=== PATIENT | female | born 1945 | race Caucasian/White ===

== ENCOUNTER 2018-12-19 12:38 | Emergency (ER) | payer MEDICARE, OTHER ==
--- NOTE | 2018-12-19 12:56 | ER Document Report ---
HPI - HPI Time Seen by Provider: 12/19/18 12:48 Context: Patient is a 73-year-old female who presents to the emergency department with a chief complaint of right thumb injury. Patient reports around 11 AM she was attempting to shut the dryer door when it smashed her right thumb. Patient repo rts she does have a laceration to the bottom of the right thumb. Patient reports she does have an oozing of blood, she is on Xarelto for a blood clot in the neck. Patient reports her tetanus shot is up-to-date. Patient reports there is no nail bed involvement. Patient reports she was seen at the urgent care and sent here for imaging. Past Medical History - General Information source: Patient - Social History Smoking Status: Former Smoker Lives with: Family Family History: None Vertical Provider Document - CONSTITUTIONAL Agree With Documented VS: Yes Exam Limitations: No Limitations General Appearance: No Apparent Distress - HEENT HEENT: Atraumatic, Normocephalic, PERRLA - RESPIRATORY Respiratory: Breath Sounds Normal, No Respiratory Distress - CARDIOVASCULAR Cardiovascular: Regular Rate, Regular Rhythm - GI/ABDOMEN Gastrointestinal: Abdomen Soft, Abdomen Non-Tender - NEURO Level of Consciousness: Awake, Alert, Appropriate - DERM Integumentary: Warm, Dry, Laceration Notes: U shaped superficial laceration/skin tear noted to the ventral aspect of the right thumb. This is located at the distal aspect of the thumb. There is no nailbed involvement. Patient does have good range of motion of the right thumb. Bleeding is controlled. Patient has good flexion extension of the thumb. <2 sec cap refill to the thumb. No obvious deformity. Course - Re-evaluation Re-evalutation: 12/19/18 12:56 We will cleanse the wound and soaked in Shur-Clens and warm water. Will obtain an x-ray to rule out bony abnormality. 12/19/18 15:01 The wound was copiously irrigated prior to suture repair. I did bring the wound loosely approximated with 3 sutures. I was unable to bring the wound closer together due to the thin skin. I did use Steri-Strips over the laceration. Patient was placed in a finger splint. We will send patient to hand surgeon. I do not suspect a tendon injury as the patient does have good flexion and extension. X-ray did not show a fracture/dislocation. - Diagnostic Test Radiology reviewed: Reports reviewed Radiology results interpreted by me: 12/19/18 14:59 Finger X-Ray 12/19/18 12:52 IMPRESSION: No fracture evident. As above. Procedures - Laceration/Wound Repair Right Distal Thumb Time completed: 14:45 Wound length (cm): 3 Wound's Depth, Shape: Superficial, Irregular, Flap Laceration pre-procedure: Sterile PPE donned, Sterile drapes applied, Shur-Clens applied Anesthetic type: 1% Lidocaine Volume Anesthetic (mLs): 1 Wound explored: Clean Irrigated w/ Saline (mLs): 250 Wound Repaired With: Sutures Suture Size/Type: 5:0, Nylon Number of Sutures: 3 Post-procedure wound care: Sterile dressing applied, Splint applied Post-procedure NV exam normal: Yes Complications: No Hands front picture: 1 - 3 cm u-shaped irregular laceration/skin flap brought together with three loose sutures, then applied steri strips. Discharge - Discharge Clinical Impression: Laceration of right thumb Qualifiers: Encounter type: initial encounter Damage to nail status: without damage Foreign body presence: without foreign body Qualified Code(s): S61.011A - Laceration without foreign body of right thumb without damage to nail, initial encounter Condition: Stable Disposition: HOME, SELF-CARE Additional Instructions: Today you are seen in the emergency department for laceration to the right thumb. The x-ray did not show any acute fracture dislocation. Your physical examination was reassuring. The wound was copiously irrigated with soap and water. The skin flap was brought together with 3 loose sutures. I did this primarily to bring the wound together although the skin was very thin. This d oes have the potential to break through due to the thin skin. I placed you in a finger splint to help prevent this. Your wound was also closed with Steri- Strips. Please keep these intact until they follow-up on their own. Please follow-up with the hand surgeon for reevaluation. If you are unable to get an appointment with him please return to the emergency department to have the sutures removed in 10 days. Please remove the finger splint daily to visualize the finger. Watch for increased swelling, redness, drainage, increased tenderness, red streaking, drainage or numbness or tingling. If you do have any of these symptoms please return to the emergency department. LACERATION CARE: Your laceration has been sutured to keep the skin edges aligned during healing. The time of suture removal depends on the nature and location of your cut. Please follow the care instructions the doctor has outlined for you and return for further care, according to the schedule you've been given. Keep the wound and dressing clean. Unless you were told otherwise, you may shower daily, blotting the wound dry with a clean, unused towel. At other times, If the dressing gets wet or blood soaked, remove it and blot the wound dry, then reapply a new dressing. Unless you were instructed otherwise, dressings should be changed at least daily. If any signs of infection occur (swelling, redness, drainage, increasing tenderness, red streaks, tender lumps in the armpit or groin above the laceration, or fever), see the doctor immediately. SOAP CLEANSING: Gently wash the wound daily using a mild soap (like Ivory, Phisoderm, Neutrogena). Use warm water, rubbing gently until all debris, ooze, and crusting have been washed from the wound. Allow to dry briefly (about 10 minutes) after cleaning. Repeat this cleansing at least three times a day for the first two days and then once or twice a day. FOLLOW-UP CARE: Your sutures should be removed in __10__ days. To facilitate a timely removal of your sutures, you may return to the Emergency Department at [facility]. You do not need to call for an appointment, but the best time to come in for suture removal is early in the morning. If you have been referred to another physician for follow-up care, call that physicians office for an appointment as you were instructed. If you exp erience a significant change in your laceration, or if you are concerned there may be an infection (swelling, redness, drainage, increasing tenderness, red streaks, tender lumps in the armpit or groin above the laceration, or fever), return to the Emergency Department immediately re-evaluation. Referrals: BESSY AZUL, [ACTIVE STAFF] - Follow up as needed
--- NOTE | 2018-12-19 13:22 | RADIOLOGY REPORT (SQ) ---
EXAM DESCRIPTION: FINGER RIGHT COMPLETED DATE/TIME: 12/19/2018 1:13 pm REASON FOR STUDY: Slammed right thumb in door COMPARISON: None. NUMBER OF VIEWS: Three views right hand and thumb. LIMITATIONS: None. FINDINGS: Osteopenic. Slightly hyper extended appearing thumb at the MP joint. No subluxation or d islocation or fracture. Pronounced thumb base degenerative disease. OTHER: No other significant finding. IMPRESSION: No fracture evident. As above. TECHNICAL DOCUMENTATION: JOB ID: [id number] Reading location - IP/workstation name: [email or web address]
[2018-12-19] MEDS ORDERED: LIDOCAINE 1% INJ-PF (10 MG/ML) 30 ML SDV INJ ONE (14:01)
[2018-12-19] MEDS ORDERED: ACETAMINOPHEN 325 MG TABLET PO ONE (14:59)
[2018-12-19 15:26] VITALS: BP 124/51
== END 2018-12-19 15:28 | disposition home or self-care (01) ==
LOC: ER 12:38
DX: S61.011A Laceration without foreign body of right thumb without damage to nail, initial encounter (principal); W23.1XXA Caught, crushed, jammed, or pinched between stationary objects, initial encounter; Z79.01 Long term (current) use of anticoagulants
CPT/HCPCS: 73140; 12002; A9270; J3490; 99283

== ENCOUNTER → 2019-03-16 | Outpatient (CLI) | payer MEDICARE, OTHER ==
[2019-03-16 09:09] LABS: HEMATOCRIT 42.7 % (36.0-47.0); HEMOGLOBIN 14.5 g/dL (12.0-15.5); MEAN CORPUSCULAR HEMOGLOBIN 29.1 pg (27.0-33.4); MEAN CORPUSCULAR HGB CONC 33.8 g/dL (32.0-36.0); MEAN CORPUSCULAR VOLUME 86 fl (80-97); PLATELET COUNT 228 10^3/uL (150-450); RED BLOOD COUNT 4.97 10^6/uL (3.72-5.28); RED CELL DISTRIBUTION WIDTH 14.5 % (11.5-14.0); WHITE BLOOD COUNT 5.7 10^3/uL (4.0-10.5)
[2019-03-16 09:31] LABS: ALBUMIN 4.1 g/dL (3.5-5.0); ALKALINE PHOSPHATASE 85 U/L (38-126); ANION GAP 6 (5-19); ASPARTATE AMINO TRANSFERASE 25 U/L (14-36); BILIRUBIN,TOTAL 0.6 mg/dL (0.2-1.3); BLOOD UREA NITROGEN 22 mg/dL (7-20); CALCIUM 9.8 mg/dL (8.4-10.2); CARBON DIOXIDE 27 mmol/L (22-30); CHLORIDE 107 mmol/L (98-107); CHOLESTEROL 244.32 mg/dL (0-200); GLUCOSE 94 mg/dL (75-110); POTASSIUM 5.1 mmol/L (3.6-5.0); TOTAL PROTEIN 7.1 g/dL (6.3-8.2); TRIGLYCERIDES 86 mg/dL (<150)
[2019-03-16 09:33] LABS: APPEARANCE,URINE CLOUDY; BILIRUBIN,URINE NEGATIVE (NEGATIVE); COLOR,URINE YELLOW; GLUCOSE, URINE NEGATIVE (NEGATIVE); KETONES,URINE NEGATIVE (NEGATIVE); LEUKOCYTE ESTERASE,URINE MODERATE (NEGATIVE); NITRITE,URINE POSITIVE (NEGATIVE); PROTEIN,URINE 30 mg/dL (NEGATIVE); URINE SPECIFIC GRAVITY 1.013; UROBILINOGEN,URINE NEGATIVE mg/dL (<2.0)
[2019-03-16 09:42] LABS: DIRECT LDL 166 mg/dL (<100)
== END ==
LOC: OD 08:04
PROVIDERS: ATTEND Internal Medicine Cardiovascular Disease
DX: E78.00 Pure hypercholesterolemia, unspecified (principal); R00.0 Tachycardia, unspecified; Z79.01 Long term (current) use of anticoagulants; Z79.899 Other long term (current) drug therapy; R01.1 Cardiac murmur, unspecified; Z86.718 Personal history of other venous thrombosis and embolism
CPT/HCPCS: 36415; 80048; 80061; 80076; 81001; 82272; 83735; 84443; 85027; 85730

== ENCOUNTER → 2019-04-21 | Outpatient (CLI) | payer MEDICARE, OTHER ==
[2019-04-21 08:16] LABS: ALBUMIN 3.9 g/dL (3.5-5.0); ALKALINE PHOSPHATASE 88 U/L (38-126); ANION GAP 10 (5-19); ASPARTATE AMINO TRANSFERASE 24 U/L (14-36); BILIRUBIN,DIRECT 0.3 mg/dL (0.0-0.4); BILIRUBIN,TOTAL 0.6 mg/dL (0.2-1.3); BLOOD UREA NITROGEN 18 mg/dL (7-20); CALCIUM 9.3 mg/dL (8.4-10.2); CARBON DIOXIDE 26 mmol/L (22-30); CHLORIDE 104 mmol/L (98-107); CHOLESTEROL 130.64 mg/dL (0-200); GLUCOSE 96 mg/dL (75-110); POTASSIUM 4.4 mmol/L (3.6-5.0); TOTAL PROTEIN 7.1 g/dL (6.3-8.2); TRIGLYCERIDES 87 mg/dL (<150)
[2019-04-21 08:27] LABS: DIRECT LDL 78 mg/dL (<100)
== END ==
LOC: LAB 07:37
PROVIDERS: ATTEND Internal Medicine Cardiovascular Disease
DX: E78.00 Pure hypercholesterolemia, unspecified (principal); E87.5 Hyperkalemia; Z79.899 Other long term (current) drug therapy
CPT/HCPCS: 36415; 80048; 80061; 80076

== ENCOUNTER → 2019-06-01 | Outpatient (CLI) | payer MEDICARE, OTHER ==
--- NOTE | 2019-06-01 16:11 | RADIOLOGY REPORT (SQ) ---
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 RADIONUCLIDE AND DOSE: 9.91 mCi F18 FDG The route of agent administration: Intravenous FASTING BLOOD SUGAR: 91 mg/dl CONTRAST TYPE AND DOSE: No CT contrast given. TECHNIQUE: Blood glucose level was verified. Above dose of FDG was injected intravenously. 2-D seg mented attenuation correction images were obtained from the base of the skull to the midthighs. Nonc ontrast CT images were obtained for attenuation correction and fusion with emission images. CT image s were performed without oral or intravenous contrast and are not sensitive for parenchymal lesions. A series of overlapping emission PET images were obtained. Images reviewed and manipulated at [facility] work station by the radiologist. Images stored on PACS. LIMITATIONS: None. FINDINGS: HEAD AND NECK: No areas of abnormal metabolic activity in the soft tissues of the head and neck. CHEST: No areas of abnormal metabolic activity in the chest. ABDOMEN AND PELVIS: 2 focal areas of increased metabolic activity in the pelvis. There is a 1.1 cm n ode along the right lateral pelvic sidewall just posterior to the acetabulum. SUV is measured at 4.2 . Neoplasm cannot be excluded. There is a small node demonstrated on CT series 3, image 206. This demonstrates an SUV of 2.5. This could be reactive. This node measures 7.4 mm in diameter. PROXIMAL LOWER EXTREMITIES: No areas of abnormal metabolic activity in the soft tissues of the lower extremities. BONES: No abnormal metabolic activity in the visualized skeleton. ADDITIONAL CT FINDINGS: Postsurgical changes. Prior cystectomy with urinary diversion. Mild left ad renal fullness but no abnormal metabolic activity. OTHER: No other significant findings. IMPRESSION: 2 small lymph nodes in the right aspect of the pelvis is described. 1 demonstrates an S UV of 4.2. It measures 1.1 cm in diameter. Metastatic disease cannot be excluded. TECHNICAL DOCUMENTATION: JOB ID: [id number] [employer]- All Rights Reserved Reading location - IP/workstation name: [email or web address]
== END ==
LOC: RAD 07:59
PROVIDERS: ATTEND Internal Medicine
DX: C67.0 Malignant neoplasm of trigone of bladder (principal)
CPT/HCPCS: 78815; A9552

== ENCOUNTER 2019-06-11 08:44 | Day surgery (SDC) | payer MEDICARE, OTHER ==
[2019-06-11 09:20] LABS: HEMATOCRIT 41.2 % (36.0-47.0); HEMOGLOBIN 14.6 g/dL (12.0-15.5); MEAN CORPUSCULAR HEMOGLOBIN 29.5 pg (27.0-33.4); MEAN CORPUSCULAR HGB CONC 35.5 g/dL (32.0-36.0); MEAN CORPUSCULAR VOLUME 83 fl (80-97); PLATELET COUNT 218 10^3/uL (150-450); RED BLOOD COUNT 4.95 10^6/uL (3.72-5.28); RED CELL DISTRIBUTION WIDTH 16.4 % (11.5-14.0); WHITE BLOOD COUNT 6.2 10^3/uL (4.0-10.5)
[2019-06-11 09:43] LABS: BLOOD UREA NITROGEN 18 mg/dL (7-20)
[2019-06-11 09:49] LABS: INTERNATIONAL RATION (INR) 0.93; PROTHROMBIN TIME 12.5 SEC (11.4-15.4)
[2019-06-11 09:50] LABS: PARTIAL THROMBOPLASTIN TIME 30.9 SEC (23.5-35.8)
--- NOTE | 2019-06-11 12:43 | RADIOLOGY REPORT (SQ) ---
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 TECHNIQUE: CT guided biopsy of the right pelvic side wall soft tissue nodule performed with consciou s sedation. CT Fluoroscopy Time: 21.[address] scanners at this facility use dose modulation, iterative reconstruction, and/or weight based d osing when appropriate to reduce radiation dose to as low as reasonably achievable (ALARA). [facility]: Dose Right [facility]: CareDose [facility]: Dose Right [facility]: Teradose 4D [facility]: [employer] RADIATION DOSE: mGy. FINDINGS: After obtaining informed consent and explaining the risks and benefits of conscious sedati on,the patient agreed to the procedure. Prior to the procedure, a time out was performed to verify th e patient's identity and planned procedure. IV sedation was administered and physician direction by the registered nurse using 1 milligrams of Ve rsed and 50 micrograms of fentanyl, for conscious sedation. Physiologic monitoring was provided befor e, during, and after sedation. The total sedation time was 30 minutes. Documentation face to face time, the performing proceduralist, spent monitoring the patient: 3rd min utes. Noncontrast CT scanning was performed to localize the percutaneous site for the biopsy approach. After sterile skin prep and local lidocaine for skin and deep tissue anesthesia, a coaxial biopsy nee dle was advanced toward the subcentimeter soft tissue nodule along the right pelvic side wall. After needle position confirmed multiple core biopsies were obtained. The samples were placed in appropri ate solution and sent to the lab for analysis. The right pelvic soft tissue subcentimeter used to ob tain multiple cores of tissue. The biopsy tissue was submitted to the lab in formalin. There were no immediate complications. Pathology is pending at the time of dictation. IMPRESSION: CT fluoroscopy guided biopsy of the subcentimeter soft tissue right pelvic sidewall nodu le as detailed above. Technically difficult biopsy secondary to small lesion size. COMMENT: Quality ID 145: Final reports for procedures using fluoroscopy that document radiation exp osure indices, or exposure time and number of fluorographic images (if radiation exposure indices are not available) Patient medication list reviewed: Yes- Quality ID# [id number]:Eligible professional attests to documenting i n the medical record they obtained, updated, or reviewed the patient's current medications.. TECHNICAL DOCUMENTATION: JOB ID: [id number] Quality ID# [id number]: Final reports with documentation of one or more dose reduction techniques (e.g., Aut omated exposure control, adjustment of the mA and/or kV according to patient size, use of iterative r econstruction technique) 2010 [employer]- All Rights Reserved Reading location - IP/workstation name: [email or web address]
--- NOTE | 2019-06-11 12:43 | RADIOLOGY REPORT (SQ) ---
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 TECHNIQUE: CT guided biopsy of the right pelvic side wall soft tissue nodule performed with consciou s sedation. CT Fluoroscopy Time: 21.[address] scanners at this facility use dose modulation, iterative reconstruction, and/or weight based d osing when appropriate to reduce radiation dose to as low as reasonably achievable (ALARA). [facility]: Dose Right [facility]: CareDose [facility]: Dose Right [facility]: Teradose 4D [facility]: [employer] RADIATION DOSE: mGy. FINDINGS: After obtaining informed consent and explaining the risks and benefits of conscious sedati on,the patient agreed to the procedure. Prior to the procedure, a time out was performed to verify th e patient's identity and planned procedure. IV sedation was administered and physician direction by the registered nurse using 1 milligrams of Ve rsed and 50 micrograms of fentanyl, for conscious sedation. Physiologic monitoring was provided befor e, during, and after sedation. The total sedation time was 30 minutes. Documentation face to face time, the performing proceduralist, spent monitoring the patient: 3rd min utes. Noncontrast CT scanning was performed to localize the percutaneous site for the biopsy approach. After sterile skin prep and local lidocaine for skin and deep tissue anesthesia, a coaxial biopsy nee dle was advanced toward the subcentimeter soft tissue nodule along the right pelvic side wall. After needle position confirmed multiple core biopsies were obtained. The samples were placed in appropri ate solution and sent to the lab for analysis. The right pelvic soft tissue subcentimeter used to ob tain multiple cores of tissue. The biopsy tissue was submitted to the lab in formalin. There were no immediate complications. Pathology is pending at the time of dictation. IMPRESSION: CT fluoroscopy guided biopsy of the subcentimeter soft tissue right pelvic sidewall nodu le as detailed above. Technically difficult biopsy secondary to small lesion size. COMMENT: Quality ID 145: Final reports for procedures using fluoroscopy that document radiation exp osure indices, or exposure time and number of fluorographic images (if radiation exposure indices are not available) Patient medication list reviewed: Yes- Quality ID# [id number]:Eligible professional attests to documenting i n the medical record they obtained, updated, or reviewed the patient's current medications.. TECHNICAL DOCUMENTATION: JOB ID: [id number] Quality ID# [id number]: Final reports with documentation of one or more dose reduction techniques (e.g., Aut omated exposure control, adjustment of the mA and/or kV according to patient size, use of iterative r econstruction technique) 2010 [employer]- All Rights Reserved Reading location - IP/workstation name: [email or web address]
[2019-06-11 17:14] VITALS: BP 114/69
== END 2019-06-11 15:10 | disposition home or self-care (01) ==
LOC: RAD 08:44
PROVIDERS: ATTEND Internal Medicine
DX: C67.0 Malignant neoplasm of trigone of bladder (principal); Z79.01 Long term (current) use of anticoagulants; J44.9 Chronic obstructive pulmonary disease, unspecified; K21.9 Gastro-esophageal reflux disease without esophagitis; I82.90 Acute embolism and thrombosis of unspecified vein
CPT/HCPCS: 36415; 84520; 82565; 85027; 85610; 85730; 88342 ×2; 88341 ×2; 88305 ×2; 77012; 27040; J2250; J3010

== ENCOUNTER 2019-07-15 12:23 | Emergency (ER) | payer MEDICARE, OTHER ==
--- NOTE | 2019-07-15 13:04 | ER Document Report ---
ED Medical Screen (RME) - General Chief Complaint: Eye Problem Stated Complaint: EYE IRRITATION Time Seen by Provider: 07/15/19 12:55 Primary Care Provider: SIMEON NUNEZ MD [Primary Care Provider] - Follow up as needed Mode of Arrival: Ambulatory Information source: Patient TRAVEL OUTSIDE OF THE [place] IN LAST 30 DAYS: No - HPI Notes: 07/15/19 12:59 74-year-old female presents to the emergency room with a history of a brain blood clot and she is on Eliquis today with complaints of right eye pain, blurred vision after she states dust from car battery acid went into her eye approximately an hour ago. Patient does not wear contacts. States she immediately irrigated her eye thereafter. Reports pain is 4 out of 5. P atient's tetanus is up-to-date. Patient states she did not take any [id number] medications for her eye pain I have greeted and performed a rapid initial assessment of this patient. A comprehensive ED assessment and evaluation of the patient, analysis of test results and completion of the medical decision making process will be conducted by additional ED providers. PHYSICAL EXAMINATION: GENERAL: Well-appearing, well-nourished and in no acute distress. HEAD: Atraumatic, normocephalic. EYES: Pupils equal round extraocular movements intact, conjunctiva are normal. R eye with erythema at 10 o'clock in iris with gel like substance near lower conjunctiva. Noted right sclera with erythema NECK: Normal range of motion CV: s1, s2 regular LUNGS: No respiratory distress NEUROLOGICAL: Normal speech, normal gait. 07/15/19 13:01 - Related Data Allergies/Adverse Reactions: adhesive Allergy (Mild, Verified 07/15/19 13:00) Past Medical History - Past Medical History Cardiac Medical History: Denies: Hx Coronary Artery Disease, Hx Heart Attack, Hx Hypertension Pulmonary Medical History: Reports: Hx COPD Denies: Hx Asthma, Hx Bronchitis, Hx Pneumonia Neurological Medical History: Denies: Hx Cerebrovascular Accident, Hx Seizures Musculoskeltal Medical History: Reports Hx Arthritis - thumb Past Surgical History: Reports: Hx Orthopedic Surgery - left wrist - Immunizations Hx Diphtheria, Pertussis, Tetanus Vaccination: Yes Physical Exam - Vital signs Vitals: Temp Pulse Resp BP Pulse Ox 98.1 F 95 16 149/61 H 94 07/15/19 12:32 07/15/19 12:32 07/15/19 12:32 07/15/19 12:32 07/15/19 12:32 Course - Vital Signs Vital signs: Temp Pulse Resp BP Pulse Ox 98.1 F 95 16 149/61 H 94 07/15/19 12:32 07/15/19 12:32 07/15/19 12:32 07/15/19 12:32 07/15/19 12:32 Doctor's Discharge - Discharge Referrals: SIMEON NUNEZ MD [Primary Care Provider] - Follow up as needed
--- NOTE | 2019-07-15 19:34 | ER Document Report ---
ED General - General Chief Complaint: Eye Injury Stated Complaint: EYE IRRITATION Time Seen by Provider: 07/15/19 12:55 Primary Care Provider: DOTTIE LARA DO [ACTIVE STAFF] - Follow up as needed SIMEON NUNEZ MD [Primary Care Provider] - Follow up as needed Mode of Arrival: Ambulatory Information source: Patient TRAVEL OUTSIDE OF THE [place] IN LAST 30 DAYS: No - HPI Onset: Just prior to arrival Onset/Duration: Sudden Quality of pain: Burning Severity: Mild Pain Level: 1 Associated symptoms: Other - redness of right eye Exacerbated by: Denies Relieved by: Denies Similar symptoms previously: No Recently seen / treated by doctor: No Notes: 74 year old female with no significant PMH here in the ER for right eye redness, pain, and mild discharge after getting some dust from a car battery in her eye. The patient says she initially felt like something was in her right eye but she irrigated her eye and she thinks she got whatever that was out. The patient says her right eye just looks very red now and a family member thought they saw a cut/abrasion of her right eye. - Related Data Allergies/Adverse Reactions: adhesive Allergy (Mild, Verified 07/15/19 13:00) Past Medical History - General Information source: Patient - Social History Smoking Status: Never Smoker Chew tobacco use (# tins/day): No Frequency of alcohol use: Occasional Drug Abuse: None Family History: None Patient has homicidal ideation: No - Past Medical History Cardiac Medical History: Denies: Hx Coronary Artery Disease, Hx Heart Attack, Hx Hypertension Pulmonary Medical History: Reports: Hx COPD Denies: Hx Asthma, Hx Bronchitis, Hx Pneumonia Neurological Medical History: Denies: Hx Cerebrovascular Accident, Hx Seizures Musculoskeletal Medical History: Reports Hx Arthritis - thumb Past Surgical History: Reports: Hx Orthopedic Surgery - left wrist - Immunizations Hx Diphtheria, Pertussis, Tetanus Vaccination: Yes Hx Pneumococcal Vaccination: 12/06/18 Review of Systems - Review of Systems Constitutional: No symptoms reported EENT: Eye pain - right eye, Eye discharge - right eye, Other - Redness of right eye Cardiovascular: No symptoms reported Respiratory: No symptoms reported Gastrointestinal: No symptoms reported Genitourinary: No symptoms reported Female Genitourinary: No symptoms reported Musculoskeletal: No symptoms reported Skin: No symptoms reported Hematologic/Lymphatic: No symptoms reported Neurological/Psychological: No symptoms reported -: Yes All other systems reviewed and negative Physical Exam - Vital signs Vitals: Temp Pulse Resp BP Pulse Ox 98.1 F 95 16 149/61 H 94 07/15/19 12:32 07/15/19 12:32 07/15/19 12:32 07/15/19 12:32 07/15/19 12:32 - Notes Notes: GENERAL: Well-appearing, well-nourished and in no acute distress. HEAD: Atraumatic, normocephalic. EYES: Right conjunctiva is injected. Mild purulent drainage from right eye. Pupils equal round and reactive to light, extraocular movements intact, sclera anicteric, conjunctiva are normal. Rolon lamp and fluorescein exam reveals 2 corneal abrasions of right eye at 5 and 7 oclock. ENT: External ears normal, nares patent, oropharynx clear without exudates. Moist mucous membranes. NECK: Normal range of motion, supple without lymphadenopathy or JVD. LUNGS: Breath sounds clear to auscultation bilaterally and equal. No wheezes rales or rhonchi. HEART: Regular rate and rhythm without murmurs, rubs or gallops. ABDOMEN: Soft, nontender, normoactive bowel sounds. No guarding, no rebound. No masses appreciated. EXTREMITIES: Normal range of motion, no pitting or edema. No clubbing or cyanosis. NEUROLOGICAL: Cranial nerves II through XII grossly intact. Normal speech, normal gait. PSYCH: Normal mood, normal affect. SKIN: Warm, Dry, normal turgor, no rashes or lesions noted. - HEENT Visual acuity- Right eye: 20/20 Visual acuity- Left eye: 20/20 Visual acuity- Both eyes: 20/20 Corrective lenses worn: Yes Course - Re-evaluation Re-evalutation: 07/15/19 19:40 The patient got dust from a car battery in her right eye. She rinsed her eye out some herself prior to ER arrival. I used tetracaine drops and rinsed the patient's eye out more. On further exam with Rolon Lamp, patient found to have 2 corneal abrasions but no foreign bodies. Patient DCed with script for Erythromycin and she was told to follow up with an Eye Doctor. - Vital Signs Vital signs: Temp Pulse Resp BP Pulse Ox 98.0 F 79 17 135/61 H 97 07/15/19 16:59 07/15/19 16:59 07/15/19 16:59 07/15/19 16:59 07/15/19 16:59 Discharge - Discharge Clinical Impression: Corneal abrasion Qualifiers: Encounter type: initial encounter Laterality: right Qualified Code(s): S05.01XA - Injury of conjunctiva and corneal abrasion without foreign body, right eye, initial encounter Condition: Stable Disposition: HOME, SELF-CARE Instructions: Corneal Abrasion ([facility]) Additional Instructions: Use the antibiotic ointment (erythromycin) as prescribed four times a day. Follow up with an Eye Doctor such as Dr. Lara in 5-7 days to ensure resolution of symptoms. Prescriptions: Erythromycin Base [Erythromycin Oph 1 Gm Oint Ud] 1 applic OD QID 7 Days #1 tube Referrals: SIMEON NUNEZ MD [Primary Care Provider] - Follow up as needed DOTTIE LARA DO [ACTIVE STAFF] - Follow up as needed
[2019-07-15 20:06] VITALS: BP 129/67
== END 2019-07-15 20:15 | disposition home or self-care (01) ==
LOC: ER 12:23
DX: S05.01XA Injury of conjunctiva and corneal abrasion without foreign body, right eye, initial encounter (principal); X58.XXXA Exposure to other specified factors, initial encounter
CPT/HCPCS: 99283

== ENCOUNTER → 2019-10-12 | Outpatient (CLI) | payer MEDICARE, OTHER ==
[2019-10-12 09:58] LABS: ALBUMIN 3.7 g/dL (3.5-5.0); ALKALINE PHOSPHATASE 68 U/L (38-126); ANION GAP 7 (5-19); ASPARTATE AMINO TRANSFERASE 24 U/L (14-36); BILIRUBIN,DIRECT 0.3 mg/dL (0.0-0.4); BILIRUBIN,TOTAL 0.7 mg/dL (0.2-1.3); BLOOD UREA NITROGEN 20 mg/dL (7-20); CALCIUM 8.9 mg/dL (8.4-10.2); CARBON DIOXIDE 25 mmol/L (22-30); CHLORIDE 107 mmol/L (98-107); GLUCOSE 95 mg/dL (75-110); POTASSIUM 3.9 mmol/L (3.6-5.0); TOTAL PROTEIN 6.2 g/dL (6.3-8.2)
[2019-10-12 10:24] LABS: HEMATOCRIT 28.3 % (36.0-47.0); HEMOGLOBIN 9.9 g/dL (12.0-15.5); MEAN CORPUSCULAR HEMOGLOBIN 32.7 pg (27.0-33.4); MEAN CORPUSCULAR HGB CONC 35.1 g/dL (32.0-36.0); MEAN CORPUSCULAR VOLUME 93 fl (80-97); PLATELET COUNT 160 10^3/uL (150-450); RED BLOOD COUNT 3.04 10^6/uL (3.72-5.28); RED CELL DISTRIBUTION WIDTH 21.6 % (11.5-14.0); WHITE BLOOD COUNT 3.9 10^3/uL (4.0-10.5)
[2019-10-13 08:28] LABS: CHOLESTEROL 118.35 mg/dL (0-200); TRIGLYCERIDES 67 mg/dL (<150)
[2019-10-13 08:39] LABS: DIRECT LDL 55 mg/dL (<100)
== END ==
LOC: OD 08:23
PROVIDERS: ATTEND Internal Medicine Cardiovascular Disease
DX: E78.00 Pure hypercholesterolemia, unspecified (principal); R00.0 Tachycardia, unspecified; Z79.01 Long term (current) use of anticoagulants; Z79.899 Other long term (current) drug therapy
CPT/HCPCS: 36415; 80048; 80061; 80076; 82272; 85027; 85730

== ENCOUNTER → 2019-12-07 | Outpatient (CLI) | payer MEDICARE, OTHER ==
--- NOTE | 2019-12-08 10:24 | RADIOLOGY REPORT (SQ) ---
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 RADIONUCLIDE AND DOSE: 9.97 mCi F18 FDG The route of agent administration: Intravenous FASTING BLOOD SUGAR: 110 mg/dl CONTRAST TYPE AND DOSE: No CT contrast given. TECHNIQUE: Blood glucose level was verified. Above dose of FDG was injected intravenously. 2-D seg mented attenuation correction images were obtained from the base of the skull to the midthighs. Nonc ontrast CT images were obtained for attenuation correction and fusion with emission images. CT image s were performed without oral or intravenous contrast and are not sensitive for parenchymal lesions. A series of overlapping emission PET images were obtained. Images reviewed and manipulated at [facility] work station by the radiologist. Images stored on PACS. LIMITATIONS: None. FINDINGS: HEAD AND NECK: There is mild elevated asymmetric uptake (maximum SUV of 6.1) within the pa latine sinuses that have no anatomic correlate on the correlative CT. There is a 6 mm lymph node in the left supraclavicular fossa (image 54 of series 3) that has increased in size since 06/01/2019 and demonstrates mild elevated FDG uptake with a maximum SUV of 4.3. CHEST: No areas of abnormal metabolic activity in the chest. ABDOMEN AND PELVIS: The liver demonstrates homogeneous FDG uptake with an average SUV of 2.2. The pa tient is status post cystectomy with creation of an urinary diversion. There are new FDG avid interme diate lumbar, postcaval and lateral aortic lymph nodes - for reference the 13 mm short axis intermedi ate lymph node image 142 of series 3) has a maximum SUV of 11. The pelvic lymph nodes described on t he prior PET demonstrate no abnormal FDG uptake on PET. PROXIMAL LOWER EXTREMITIES: No areas of abnormal metabolic activity in the soft tissues of the lower extremities. BONES: No areas of abnormal metabolic activity in the skeleton. ADDITIONAL CT FINDINGS: OTHER: No other findings. IMPRESSION: 1. New enlarged FDG avid retroperitoneal lymph nodes as detailed above concerning for me tastatic disease. 2. New 6 mm FDG avid lymph node in the left supraclavicular fossa also concerning for metastatic dis ease. 3. Mild asymmetric uptake within the palatine sinuses that have no anatomic correlate on the correla tive CT - correlation with direct visualization is recommended. TECHNICAL DOCUMENTATION: JOB ID: [id number] 2010 [employer]- All Rights Reserved Reading location - IP/workstation name: [email or web address]
== END ==
LOC: RAD 08:32
PROVIDERS: ATTEND Internal Medicine
DX: C67.0 Malignant neoplasm of trigone of bladder (principal)
CPT/HCPCS: 78815; A9552